=== PATIENT | female | born 1960 | race Caucasian/White ===

== ENCOUNTER 2019-04-16 06:17 | Day surgery (SDC) | payer BC ==
[~2019-04-16 06:17] MED LIST: Buffered Lidocaine 1% SYRIN* 1 ML/SYRINGE INTRADERM ONE; Dexamethasone TAB* 4 MG PO ONE; DiMENhydriNATE IV* 50 MG/ML VIAL IV PUSH PRN; Famotidine IV* 10 MG/ML 2 ML (20 mg) IV ONE; Lactated Ringers 1000 ML Bag* 1,000 ML IV SCH; Naloxone* 0.4 MG/ML 1 ML VIAL IV PRN; Ondansetron ODT TAB* 4 MG PO ONE; PROCHLORPERAZINE INJ 5 MG/ML 2 ML VIAL IV PRN; fentaNYL* 50 MCG/ML 2 ML VIAL (100 MCG VIAL) IV PRN; oxyCODONE/Acetamin 5/325 MG* TAB PO PRN
[2019-04-16] MEDS ORDERED: Famotidine IV* 10 MG/ML 2 ML (20 mg) ONE (06:25)
[2019-04-16] MEDS ORDERED: Dexamethasone TAB* 4 MG ONE (06:25)
[2019-04-16] MEDS ORDERED: Ondansetron ODT TAB* 4 MG ONE (06:25)
[2019-04-16] MEDS ORDERED: fentaNYL* 50 MCG/ML 2 ML VIAL (100 MCG VIAL) ONE (07:23)
[2019-04-16] MEDS ORDERED: Midazolam* 1 MG/ML 5 ML VIAL (5 MG) ONE (07:24)
[2019-04-16] MEDS ORDERED: KETAMINE HCL* 50 MG/ML 10 ML VIAL ONE (07:24)
[2019-04-16] MEDS ORDERED: Bacitracin OINTMENT* 0.5% 0.5 oz TUBE ONE (07:44)
[2019-04-16] MEDS ORDERED: Propofol* 10 MG/ML 20 ML BTL ONE (08:00)
[2019-04-16] MEDS ORDERED: Lidocaine 2% PF * 5 ML VIAL ONE (08:00)
[2019-04-16] MEDS ORDERED: Ketorolac INJ* 30 MG/ML 1 ML VIAL ONE (08:00)
[2019-04-16 08:51] VITALS: BP 115/78
--- NOTE | 2019-04-16 16:14 | OP ---
DATE OF OPERATION: 04/16/19 [facility] DATE OF : 64 SURGEON: John Alvarez MD DRIER HELPER: LUCIAN Bradford ANESTHESIOLOGIST: Dr. Rose. ANESTHESIA: General. PRE-OP DIAGNOSIS: Right carpal tunnel syndrome. POST-OP DIAGNOSIS: Right carpal tunnel syndrome. OPERATIVE PROCEDURE: Right endoscopic carpal tunnel release. INDICATIONS: Ms. Mcclendon has carpal tunnel syndrome. We talked about her options. She wanted to proceed with surgery. ESTIMATED BLOOD LOSS: 2 mL. COMPLICATIONS: None. FINDINGS: See above and below. DESCRIPTION OF PROCEDURE: Ms. Mcclendon was seen in the preoperative holding area. The correct site, side, and procedure were identified. We came back to the operating room, the arm was prepped and draped in the usual fashion and a time- out was performed. The arm was exsanguinated and the tourniquet inflated to 225 mmHg. I made a 1 cm transverse incision just ulnar to the palmaris longus tendon just proximal to the wrist flexion crease. Dissection was carried down and the distal antebrachial fascia was split transversely bluntly with the tenotomy scissors. A two-prong skin hook was placed into the fascia, the synovial stripper followed by the dilators and then a Q-tip were used to dilate and dry out the carpal tunnel. The [employer] endoscopic carpal tunnel system was introduced just radial to the hook of the hamate. Once I had it in the appropriate location, the blade was elevated and the release was carried out from distal to proximal. Once I had fully completed the release, I released the distal antebrachial fascia proximally with the tenotomy scissors. At this point, everything was looking good. The wound was irrigated out and closed with 4-0 Prolene suture and a Steri-Strip was applied. Soft dressings were applied and she was taken to the recovery room in stable condition. [id number]/[facility] #: [id number] [facility]ORIAL HOSPITALErnestine
== END 2019-04-16 09:05 | disposition home or self-care (01) ==
LOC: OREAST 06:17
PROVIDERS: ATTEND Orthopaedic Surgery Hand Surgery
DX: G56.01 Carpal tunnel syndrome, right upper limb (principal)
CPT/HCPCS: A9270-GY; J1885; J2250; J2704; J3010; J8540